=== PATIENT | female | born 1985 | race Two or more races ===

== ENCOUNTER 2024-05-26 04:50 | Emergency (ER) | payer BC, SELFPAY ==
[2024-05-26 04:52] VITALS: BMI 30.7
--- NOTE | 2024-05-26 04:55 | EKG_ITS ---
[facility] Test Date: 2024-05-26 Pat Name: ALFREDO CANSECO Department: Room: - Gender: Female Informatics Consultant: : 1985 Requested By: Barabra Dinero Order Number: [id number] Reading MD: Barbara Dinero Measurements Intervals [place] Rate: 53 P: 9 [place]: 103 QRS: 1 QRSD: 84 T: 16 QT: 432 QTc: 408 Interpretive Statements SINUS BRADYCARDIA WITH SINUS ARRHYTHMIA WITH SHORT [place] INTERVAL LOW QRS VOLTAGE IN PRECORDIAL LEADS [QRS DEFLECTION < 1.0 mV IN CHEST LEADS] No previous ECG available for comparison /[id number]
--- NOTE | 2024-05-26 04:56 | PC.NURSE ---
Addendum entered by Kari Marcelino RN 05/26/24 04:58: Provider CANDIE Perales informed. Original Note: Pt's complaints of chest pain are vague but pt does appear clammy, so EKG ordered. office machine technician Raulito aware and pt taken straight back for EKG.
[2024-05-26 05:05] VITALS: BP 122/63; PULSE 52; RESP 19; TEMP 36.4; O2SAT 100
--- NOTE | 2024-05-26 05:17 | XR_ITS ---
Examination: PA chest single view Technique: Upright PA chest single view Exam date and time: May 26, 2024, 0546 hrs. Indications: Chest pain today Findings: Normal heart size. Lungs are clear. Osseous structures are intact. Impression: No active disease
--- NOTE | 2024-05-26 05:18 | PD.EDRME ---
Rapid Medical Screening Exam [facility] Arrival date/time: 05/26/24 04:50 39F with no significant PMH presents to ED with 1 hour of sudden but intermittent epigastric pain that radiates outwards, as well as some N/V. Patient was sleeping at the time. Patient denies drug/alcohol use, as well as panic/anxiety attacks. Chief Complaint: Chest Pain Vital signs: Vital Signs Temperature 97.6 F 05/26/24 05:05 Pulse Rate 52 L 05/26/24 05:05 Respiratory Rate 19 05/26/24 05:05 Blood Pressure 122/63 05/26/24 05:05 Pulse Oximetry (%) 100 05/26/24 05:05 Oxygen Delivery Method Room Air 05/26/24 05:05
[2024-05-26] MEDS: MG HYD/AL HYD/SIME (Maalox Reg) SUSP 30 ML UDC PO (05:31)
[2024-05-26] MEDS: FAMOTIDINE 20 MG TABLET 40 MG PO (05:32)
[2024-05-26] MEDS: ONDANSETRON ODT 4 MG TABRAP PO (05:33)
[2024-05-26 05:46] LABS: Basophils # (Auto) 0.1 Thou/mm3 (0.0-0.2); Basophils % (Auto) 1 % (0-2.5); Eosinophils # (Auto) 0.9 Thou/mm3 (0.0-0.5); Eosinophils % (Auto) 9 % (0-10); Hemoglobin 12.8 g/dL (12.0-16.0); Immature Granulocytes % (Auto) 0 % (0-0); Immature Granulocytes Auto 0.03 Thou/mm3 (0.00-0.00); Lymphocytes # (Auto) 3.7 Thou/mm3 (1.0-4.8); Lymphocytes % (Auto) 36 % (10-50); Mean Corpuscular Hemoglobin 25.4 pg (25.0-35.0); Mean Corpuscular Volume 79 fL (80-100); Monocytes # (Auto) 0.9 Thou/mm3 (0.0-0.8); Monocytes % (Auto) 8 % (0-12); Neutrophils # (Auto) 4.8 Thou/mm3 (1.8-7.7); Neutrophils % (Auto) 46 % (37-80); Nucleated Red Blood Cell % 0 /100 WBC (0); Platelet Count 380 Thou/mm3 (140-440); RDW Standard Deviation 47.2 fL (36.4-46.3); Red Blood Count 5.04 Miln/mm3 (4.00-5.20); White Blood Count 10.3 Thou/mm3 (3.6-11.0)
[2024-05-26 06:08] LABS: Alanine Aminotransferase 50 U/L (10-49); Albumin, Serum 4.4 gm/dL (3.5-5.0); Albumin/Globulin Ratio 1.6 (1.2-2.2); Alkaline Phosphatase 48 U/L (46-116); Anion Gap 11 (7-16); Aspartate Amino Transferase 43 U/L (0-34); BUN/Creatinine Ratio 20 Ratio (12-20); Bilirubin,Total 0.5 mg/dL (0.3-1.2); Blood Urea Nitrogen 14 mg/dL (9-23); Carbon Dioxide 24.7 mMol/L (20.0-31.0); Chloride 107 mMol/L (98-107); Creatinine (Component) 0.7 mg/dL (0.6-1.3); Estimated Creatinine Clearance 116.6 mL/min (>60); Globulin 2.7 gm/dL (2.3-3.5); Glucose 110 mg/dL (74-106); Lipase 76 U/L (12-53); Osmolality,Calculated 286 (275-295); Potassium 3.3 mMol/L (3.4-5.1); Sodium 143 mMol/L (136-145); Total Protein 7.1 gm/dL (5.7-8.2); Troponin I < 0.002 ng/mL (0.0-0.045); eGFR > 60 See Note
[2024-05-26 06:20] LABS: Collection Type, Urine Clean Catch
[2024-05-26 06:26] LABS: HCG Qualitative,Urine Negative
[2024-05-26 06:29] LABS: Bilirubin,Urine Negative (Negative); Blood,Urine Trace (Negative); Clarity,Urine Turbid (Clear/Hazy); Color,Urine Yellow (Lt Yel-Yel); Glucose, Urine Negative (Negative); Ketones,Urine 2+ (Negative); Leukocyte Esterase,Urine Positive (Negative); Nitrite,Urine Negative (Negative); Protein,Urine Trace (Neg - Trace); RBC,Urine 14 /hpf (0-3); Specific Gravity,Urine 1.029 (1.001-1.035); Squamous Epithelial Cell,Urine 11 /hpf (0-5); Urobilinogen,Urine Negative mg/dL (0.0-1.0); WBC,Urine 109 /hpf (0-5)
[2024-05-26 06:34] LABS: Amphetamine/Methamp Scrn,U Negative (Negative); Barbiturate Screen,Urine Negative (Negative); Benzodiazepines Screen,Urine Negative (Negative); Benzoylecgonine Screen, Ur Negative (Negative); Fentanyl Screen,Urine Negative (Negative); Opiate Screen,Urine Negative (Negative); THC Screen,Urine Negative (Negative)
--- NOTE | 2024-05-26 07:27 | EDNOTE_ITS ---
ED General RME/HPI General Chief complaint: Chest Pain Stated complaint: abd, chest and back pain Time Seen by Provider: 05/26/24 07:22 Arrival date/time: 05/26/24 04:50 CC: Epigastric pain with radiation to the left anterior chest up into the upper back. Severe at times intermittent abrupt onset approximately 4:30 AM lasting approximate 1.4 hours. Assessment of the patient at 727 the patient has no pain nausea vomiting shortness of breath difficulty breathing headache or blurred vision. RME / HPI RME / HPI narrative: 05/26/24 04:50 39F with no significant PMH presents to ED with 1 hour of sudden but intermittent epigastric pain that radiates outwards, as well as some N/V. Patient was sleeping at the time. Patient denies drug/alcohol use, as well as panic/anxiety attacks. Related Data Allergies Allergy/AdvReac Type Severity Reaction Status Date / Time No Known Allergies Allergy Verified 05/26/24 04:51 Review of Systems Review of Systems Narrative Review of Systems: GEN: No fever, no chills, no weight loss EYES: No discharge, no visual changes, no pain HEENT: No ear pain, no congestion, no sore throat PULM: No shortness of breath, no cough, no congestion CV: No chest pain, no dyspnea on exertion, no palpitations GI: No nausea, no vomiting, no diarrhea, no pain, no constipation : No frequency, no urgency, no dysuria MUSC/SKEL: No joint pain, no back pain SKIN: No rash PSYCH: No hallucinations, no depression HEME/LYMPH: No easy bleeding or bruising tendencies NEURO: No weakness, no headache Past Medical History Social History SMOKING STATUS: Never smoker ED Exam Narrative Physical exam: [General: Obese not in any acute distress Head normocephalic HEENT: Within acceptable limits Neck is supple nontender Chest equal chest rise nontender to palpation Respiratory: Clear to auscultation no wheezes crackles or rubs CV: Rate rhythm is regular no murmurs rubs or clicks Abdomen is distended secondary to body habitus soft nontender no masses positive bowel sounds all 4 quadrants Back: No CVA tenderness no spinous process tenderness from cervical spine thoracic and lumbar spine Skin: Intact no petechiae rash induration ulceration or crepitus Extremities: Moving all extremity against resistance cap refill less than 2 seconds neurosensory intact Neuro: Awake alert oriented x3 Glascow coma 15 no focal deficits] Course Quality Measures none Orders Category Date Time Status EKG (ED ONLY) *Do not use* NOW Care 05/26/24 04:55 Completed EKG (ED Only) Stat Exams 05/26/24 04:55 Draft XR chest 1V portable Stat Exams 05/26/24 05:17 Taken CBC Stat Lab 05/26/24 05:40 Completed Comprehensive Metabolic Panel Stat Lab 05/26/24 05:40 Completed Drug Screen,Urine Stat Lab 05/26/24 05:34 Completed HCG Qualitative,Urine Stat Lab 05/26/24 05:34 Completed Lipase Stat Lab 05/26/24 05:40 Completed Troponin I Stat Lab 05/26/24 05:40 Completed Urinalysis Stat Lab 05/26/24 05:34 Completed Famotidine [Pepcid] Med 05/26/24 05:17 Discontinued 40 mg PO X1 ONE Ondansetron Odt [Zofran Odt] Med 05/26/24 05:17 Discontinued 4 mg PO X1 ONE mg Hyd/Al Hyd/Holli Susp [Maalox Susp] Med 05/26/24 05:17 Discontinued 30 ml PO X1 ONE Vital Signs Vital signs: Vital Signs Temperature 97.6 F 05/26/24 05:05 Pulse Rate 52 L 05/26/24 05:05 Respiratory Rate 19 05/26/24 05:05 Blood Pressure 122/63 05/26/24 05:05 Pulse Oximetry (%) 100 05/26/24 05:05 Oxygen Delivery Method Room Air 05/26/24 05:05 [facility] Patient data External records reviewed:: [facility] previous records Clinical information provided by:: patient Social determinants that could affect healthcare access:: none Patient has the following chronic illnesses:: None How is presenting disease/condition affected by chronic disease/condition?: u neffected by Evaluation data The following diagnostics were reviewed and interpreted by me:: lab results and radiology exam(s) Lab and/or radiology exams considered but not ordered:: CBC shows no acute leukocytosis anemia thrombocytopenia CMP shows a mildly decreased potassium at 3.3 no other electrolyte imbalances renal impairment transaminitis or T. bili elevation Troponin is negative Lipase is 76 Urine is negative for urinary tract infection it is a contaminated catch however UDS is negative. Chest x-ray is unremarkable EKG performed at 0502 shows a ventricular rate of sinus bradycardia ventricular rate of 5 2 [place] interval 140 QRS of 79 QTc of 412 there is normal sinus bradycardia. Interpretation Summary: The time of the exam at 727 the patient has no symptoms whatsoever, she including with deep palpation of the epigastrium with no reflexive guarding rebound tenderness the patient be advised to follow-up with a primary care provider as there is no acute finding requires emergent or immediate intervention. Medications Medications considered but not ordered:: None Medication administrations:: Medication Administration History Discontinued Medications Al Hydrox/Mg Hydrox/Simethicone (Mg Hyd/Al Hyd/Holli (Maalox Reg) Susp 30 Ml Udc) 30 ml PO X1 ONE Stop: 05/26/24 05:18 Last Admin: 05/26/24 05:31 Dose: 30 ml Documented By: KG Famotidine (Famotidine 20 Mg Tablet) 40 mg PO X1 ONE Stop: 05/26/24 05:18 Last Admin: 05/26/24 05:32 Dose: 40 mg Documented By: KG Ondansetron HCl (Ondansetron Odt 4 Mg Tabrap) 4 mg PO X1 ONE; Protocol Stop: 05/26/24 05:18 Last Admin: 05/26/24 05:33 Dose: 4 mg Documented By: KG None Consultations Consultation(s) initiated? (list below): No Diagnosis Differential Diagnosis ED Complaint MDM: Pancreatitis gastritis cholelithiasis Most likely diagnosis given after review of the tests above:: Epigastric pain Admission Indicated Admission indicated?: not indicated Explain why admission is indicated or not indicated:: Stable for discharge Admission Request Was there a request for admission?: No Disposition Plan Disposition Plan: Discharge Discharge Attestation Discharge Attestation: The patient and all family members were given an opportunity to ask questions and understood the discharge instructions. Discharge instructions specifically effects, indications for sooner follow up or return to the emergency department, and the expected course of current diagnosis. Patient condition: Stable Medical Decision Making Differential Diagnosis Differential Diagnosis: Pancreatitis gastritis cholelithiasis Lab Data 05/26/24 05:40 05/26/24 05:40 Labs: Lab Results 05/26/24 05/26/24 Range/Units 05:34 05:40 WBC 10.3 (3.6-11.0) Thou/mm3 RBC 5.04 (4.00-5.20) Miln/mm3 Hgb 12.8 (12.0-16.0) g/dL Hct 40.0 (36.0-46.0) % MCV 79 L (80-100) fL MCH 25.4 (25.0-35.0) pg MCHC 32.0 (31.0-37.0) g/dl RDW Std Deviation 47.2 H (36.4-46.3) fL Plt Count 380 (140-440) Thou/mm3 Neut % (Auto) 46 (37-80) % Lymph % (Auto) 36 (10-50) % [place] % (Auto) 8 (0-12) % Eos % (Auto) 9 (0-10) % Baso % (Auto) 1 (0-2.5) % Neut # (Auto) 4.8 (1.8-7.7) Thou/mm3 Lymph # (Auto) 3.7 (1.0-4.8) Thou/mm3 [place] # (Auto) 0.9 H (0.0-0.8) Thou/mm3 Eos # (Auto) 0.9 H (0.0-0.5) Thou/mm3 Baso # (Auto) 0.1 (0.0-0.2) Thou/mm3 Immature Gran # (Auto) 0.03 H (0.00-0.00) Thou/mm3 Absolute Nucleated RBC 0.00 (0.00-0.00) Thou/mm3 Immature Gran % 0 (0-0) % Nucleated RBC % 0 (0) /100 WBC Sodium 143 (136-145) mMol/L Potassium 3.3 L (3.4-5.1) mMol/L Chloride 107 (98-107) mMol/L Carbon Dioxide 24.7 (20.0-31.0) mMol/L Anion Gap 11 (7-16) BUN 14 (9-23) mg/dL Creatinine 0.7 (0.6-1.3) mg/dL Estim Creat Clear Calc 116.6 (>60) mL/min eGFR > 60 (60 - ) See Note BUN/Creatinine Ratio 20 (12-20) Ratio Glucose 110 H (74-106) mg/dL Calculated Osmolality 286 (275-295) Calcium 9.0 (8.3-10.6) mg/dL Corrected Calcium 9.0 (8.5-10.1) mg/dL Total Bilirubin 0.5 (0.3-1.2) mg/dL AST 43 H (0-34) U/L ALT 50 H (10-49) U/L Alkaline Phosphatase 48 (46-116) U/L Troponin I < 0.002 (0.0-0.045) ng/mL Total Protein 7.1 (5.7-8.2) gm/dL Albumin 4.4 (3.5-5.0) gm/dL Globulin 2.7 (2.3-3.5) gm/dL Albumin/Globulin Ratio 1.6 (1.2-2.2) Lipase 76 H (12-53) U/L Ur Collection Type Clean Catch Urine Color Yellow (Lt Yel-Yel) Urine Clarity Turbid A (Clear/Hazy) Urine pH 6.0 (5.0-7.0) Ur Specific [place] 1.029 (1.001-1.035) Urine Protein Trace (Neg - Trace) Urine Glucose (UA) Negative (Negative) Urine Ketones 2+ A (Negative) Urine Blood Trace (Negative) Urine Nitrite Negative (Negative) Urine Bilirubin Negative (Negative) Urine Urobilinogen (Auto) Negative (0.0-1.0) mg/dL Ur Leukocyte Esterase Positive (Negative) Urine RBC 14 H (0-3) /hpf Urine WBC 109 H (0-5) /hpf Ur Squamous Epith Cells 11 H (0-5) /hpf Urine Bacteria None (None) Urine HCG, Qual Negative Urine Opiates Screen Negative (Negative) Urine Fentanyl Screen Negative (Negative) Ur Barbiturates Screen Negative (Negative) U Amphetamin/Meth Scrn Negative (Negative) U Benzodiazepines Scrn Negative (Negative) U Cocaine Metab Screen Negative (Negative) U Marijuana (THC) Screen Negative (Negative) Discharge Plan Plan Patient Disposition: HOME (Self Care) Patient condition on transfer: Stable Prescriptions/Referrals Referrals: Arcelia Hurtado FNP [Primary Care Provider] - In 1 week Problem List Clinical Impression: Acute epigastric pain Patient/Caregiver Discharge Instructions Education Materials: ED Epigastric Pain (Uncertain Cause) Additional Instructions: Follow-up with your primary care provider if there is a return of the symptoms or progressive worsening of the symptoms return the emergency room medially for further evaluation. Print Language: Dive[place] Stand Alone Forms: [employer] Work/School Release, Patient Portal Info Letter PA/LATEXER Supervising Physician PA/LATEXER Supervising Physician: Martín Hardin ENP
[2024-05-26 07:28] VITALS: PULSE 72; O2SAT 99
== END 2024-05-26 07:28 | disposition home or self-care (01) ==
PROVIDERS: Physician Assistant; Emergency Provider Emergency Medicine; PCP Nurse Practitioner Family
DX: R00.1 Bradycardia, unspecified (principal); R07.9 Chest pain, unspecified
CPT/HCPCS: 36415; 71045; 80053; 80307; 81001; 81025; 83690; 84484; 85025; 93005; 99283; Q0162; A9270

== ENCOUNTER → 2024-06-16 | Outpatient (CLI) | payer BC, SELFPAY ==
--- NOTE | 2024-06-16 | XR_ITS ---
Examination: Abdomen sonogram, complete Date and time of exam: June 16, 2024 0756 hours INDICATIONS: Epigastric pain beginning 2 days ago. Technique: Multiple real-time grayscale transabdominal sonographic images of the abdomen have been obtained. Findings: Gallstones Gallbladder wall 0.42 cm no edema Common bile duct 0.4 cm Pancreatic head 2.0 cm Aorta not enlarged. Liver 12.6 cm no liver lesions Normal hepatopedal portal venous flow Patent IVC Right kidney 10.6 x 6.3 x 4.9 cm cortex 2.0 cm Left kidney 10.3 x 5.3 x 5.6 cm renal cortex 1.7 cm Minimal renal parenchymal scar formation Spleen 10.3 cm IMPRESSION: Cholelithiasis Abnormal thickening of the gallbladder wall 0.42 cm, clinical correlation advised, consider HIDA scan or MRCP follow-up to exclude cholecystitis
== END | disposition home or self-care (01) ==
PROVIDERS: PCP Nurse Practitioner Family; Referring Provider Nurse Practitioner Family; Visit Provider Nurse Practitioner Family
DX: K80.20 Calculus of gallbladder without cholecystitis without obstruction (principal); R93.89 Abnormal findings on diagnostic imaging of other specified body structures
CPT/HCPCS: 76700

== ENCOUNTER 2024-08-03 21:00 | Emergency (ER) | payer BC, SELFPAY ==
[2024-08-03 21:01] VITALS: BMI 29.1
[2024-08-03 21:10] VITALS: BP 121/71; PULSE 81; RESP 18; TEMP 36.8; O2SAT 98
--- NOTE | 2024-08-03 21:29 | EDNOTE_ITS ---
ED Abdominal Pain RME/HPI General Chief Complaint: Abdominal Pain Stated complaint: R upper abd pain SP lap tyree 1400 today Time seen by provider: 08/03/24 21:24 Arrival date/time: 08/03/24 21:00 39F with history of lap tyree today presents to ED with RUQ pain. Patient denies N/V. Patient has been urinating but has not had a BM or passed gas yet. Patient took tramadol 50 mg about 30 min ago and is feeling better. Limitations: no limitations Related Data Allergies Allergy/AdvReac Type Severity Reaction Status Date / Time No Known Allergies Allergy Verified 05/26/24 04:51 Review of Systems Review of Systems Systems Reviewed: All systems reviewed, normal except as documented Constitutional Constitutional: Reports system reviewed and no additional complaints, except as documented, Denies fever(s) and Denies headache(s) ENT Ears, Nose, Mouth, and Throat: Denies disequilibrium and Denies headache(s) Cardiovascular Cardiovascular: Reports system reviewed and no additional complaints, except as documented, Denies chest pain and Denies dyspnea Respiratory Respiratory: Reports system reviewed and no additional complaints, except as doc umented, Denies cough and Denies dyspnea Gastrointestinal Gastrointestinal: Reports system reviewed and no additional complaints, except as documented, Reports as per HPI, Reports abdominal pain, Denies nausea and Denies vomiting Neurologic Neurologic: Reports system reviewed and no additional complaints, except as documented, Denies confusion, Denies disequilibrium and Denies headache(s) Psychiatric Psychiatric: Denies confusion Past Medical History Social History SMOKING STATUS: Never smoker ED Exam General Limitations: Present no limitations General appearance: Present alert and in no apparent distress Head Head exam: Present atraumatic Eye Eye exam: Present normal appearance, PERRL and EOMI ENT ENT exam: Present normal exam, normal oropharynx and mucous membranes moist Neck Neck exam: Present normal inspection, full ROM and trachea midline Chest Chest inspection: Present normal inspection and symmetric chest wall rise Respiratory Respiratory exam: Present normal lung sounds bilaterally Cardiovascular Cardiovascular exam: Present regular rate, normal rhythm and normal heart sounds Abdominal Exam Abdominal exam: Present soft and normal bowel sounds Extremities Exam Extremities exam: Present normal inspection and full ROM Back Exam Back exam: Present normal inspection and full ROM Neurological Exam Neurological exam: Present alert, oriented X3 and CN II-XII intact Psychiatric Psychiatric exam: Present normal affect and normal mood Skin Skin exam: Present warm, dry, intact and normal color Course Quality Measures none Orders Category Date Time Status Morphine Inj Med 08/03/24 21:24 Once 5 mg IM X1 ONE Vital Signs Vital signs: Vital Signs Temperature 98.3 F 08/03/24 21:10 Pulse Rate 81 08/03/24 21:10 Respiratory Rate 18 08/03/24 21:10 Blood Pressure 121/71 08/03/24 21:10 Pulse Oximetry (%) 98 08/03/24 21:10 Oxygen Delivery Method Room Air 08/03/24 21:10 O2 at 98% on RA and WNLs Abdominal Pain MDM MDM Narrative MDM Narrative:: 39F with history of lap tyree today presents to ED with RUQ pain. Patient denies N/V. Patient has been urinating but has not had a BM or passed gas yet. Patient took tramadol 50 mg about 30 min ago and is feeling better. Physical exam reveals no gross RUQ tenderness. No redness or bruising. Normal WOB. Patient is afebrile, calm, and alert. Meds and sales counselor given including to call surgeon in the morning and return if worsening. Patient data External records reviewed:: [facility] previous records Clinical information provided by:: patient Social determinants that could affect healthcare access:: none Patient has the following chronic illnesses:: none How is presenting disease/condition affected by chronic disease/condition?: no chronic disease Evaluation data The following diagnostics were reviewed and interpreted by me:: other (specify) (none) Lab and/or radiology exams considered but not ordered:: not ordered Interpretation Summary: n/a Medications / Prescriptions Medications or Prescriptions considered but not ordered:: ordered Medication administrations:: Medication Administration History Morphine Sulfate (Morphine Sulf Inj 10 Mg/Ml Vial) 5 mg IM X1 ONE Stop: 08/03/24 21:25 above Consultations Consultation(s) initiated? (list below): No Diagnosis Differential diagnosis abdominal pain: abdominal pain, acute appendicitis, calculus of kidney, constipation, diverticulitis, endometriosis, gastroenteritis, pancreatitis, small bowel obstruction and other (postop exam) Most likely diagnosis given after review of the tests above:: postop exam Admission Indicated Admission indicated?: not indicated Admission Request Was there a request for admission?: No Disposition Plan Disposition Plan: Discharge Discharge Attestation Discharge Attestation: The patient and all family members were given an opportunity to ask questions and understood the discharge instructions. Discharge instructions specifically effects, indications for sooner follow up or return to the emergency department, and the expected course of current diagnosis. Patient condition: Stable Discharge Plan Plan Patient Disposition: HOME (Self Care) Discharge Disposition comment: Stable Problem List Clinical Impression: Postoperative examination Patient/Caregiver Discharge Instructions Education Materials: Abdomen Surg Dc, Pain Management After Surgery Additional Instructions: Please follow-up with PCP within 24-48 hours and return immediately if symptoms worsen. Call surgeon in the morning. Print Language: [place] Citizen Stand Alone Forms: Patient Portal Info Letter CANDIE/ROGELIO Supervising Physician CANDIE/ROGELIO Supervising Physician: Dr. Ball
[2024-08-03] MEDS: MORPHINE SULF INJ 10 MG/ML VIAL 5 MG IM (21:42)
== END 2024-08-03 21:50 | disposition home or self-care (01) ==
PROVIDERS: Emergency Provider Emergency Medicine; PCP Nurse Practitioner Family
DX: G89.18 Other acute postprocedural pain (principal)
CPT/HCPCS: 96372; 99283; J2270